=== PATIENT | female | born 2000 ===

== ENCOUNTER 2022-02-28 13:08 | Emergency (ER) | END 2022-02-28 13:31 | disposition left against medical advice (07) | LOC: COL.ER 13:08 | DX: R69 Illness, unspecified (principal) ==

== ENCOUNTER 2022-03-22 07:45 | Emergency (ER) ==
[~2022-03-22] VITALS: Ht 170.2 cm; Wt 86.4 kg
== END 2022-03-22 09:10 | disposition left against medical advice (07) ==
LOC: COL.ER 07:45
DX: K92.9 Disease of digestive system, unspecified (principal)